=== PATIENT | female | born 1965 | race Caucasian/White ===

== ENCOUNTER 2017-09-28 19:45 | Emergency (ER) | payer OTHER, MEDICARE ==
[~2017-09-28] VITALS: Ht 160 cm; Wt 86.2 kg
[~2017-09-28 19:45] MED LIST: ACIPHEX; ACIPHEX 20 MG T20 M1 PO; ACIPHEX 20 MG T20 MG PO; ALBUTEROL INHAL17 GM IH; ALBUTEROL2.5 MG/0.1; AMARYL2 MG PO; AMBIEN 10 MG TA10 MG PO; AMITRIPTYLINE H25 M2 PO; AMOXICILLIN500 M1 PO; ANTIVERT25 MG PO; ATIVAN1 MG PO; ATROVENT15 ML NS; AZITHROMYCIN 2250 MG PO; B12INJ IM; BENADRYL25 MG PO; BUTALB-APAP-CA1 EACH PO; CARAFATE 1 GM TA1 GM PO; CHANTIX1 MG; CHERACOL COUGH120 ML PO; CIPROFLOXACIN500 M1 PO; CIPROFLOXIN HC2.5 M1 OPHTHALMIC; CLEOCIN HCL150 MG PO; COZAAR 25 MG TA25 M1 PO; CRUTCHES MISCELL; CYANOCOBAL1000 MCG/1 IJ; CYMBALTA60 MG PO; DIAZEPAM2 MG PO; DIPHENHIST50 MG PO; DOXYCYCLINE 10100 MG PO; DULOXETINE HCL30 MG PO; DULOXETINE HCL60 MG PO; EFFER-K 10 MEQ10 ME1; ENOXAPARIN30 MG/0.1; ENOXAPARIN40 MG/0.1; FENOFIBRATE160 MG PO; FENTANYL 0.50 MCG/ML IMPLANT; FENTANYL 0.50 MCG/ML IV PUSH; GABAPENTIN 100100 MG PO; HCTZ; HYCOTUSS EXPEC480 ML PO; HYDROCODON-ACE1 EAC7 PO; HYDROCODONE-AP1 EAC6 PO; IBUPROFEN 800800 MG PO; JANUVIA50 MG; JANUVIA50 MG PO; K-DUR 20 MEQ T20 MEQ PO; KEFLEX500 MG PO; LEVAQUIN 500 M500 MG PO; LEVOXYL200 MCG PO; LIPITOR 20 MG T20 M1 PO; LISINOPRIL2.5 MG PO; LISINOPRIL20 MG PO; LISINOPRIL5 MG PO; LORTAB 7.5/5001 TA3; LOVENOX30 MG/0.3 SQ; LYRICA25 MG; MAGIC MOUTHWASH PO; MAGNESIUM; MECLIZINE 25 MG25 M1 PO; MEDROLDOSEPACK PO; MIRALAX17 GM PO; NAPROSYN500 MG PO; NORFLEX100 MG PO; ONDANSETRON HCL4 M2 PO; OSENI 25-15 MG1 EACH PO; OXYCODONE; OXYCODONE HCL 55 MG PO; OXYCODONE HCL E10 MG PO; OXYCODONE HCL10 MG PO; OXYCONTIN; OXYCONTIN10 M1 PO; OXYCONTIN20 M1 PO; PAXIL10 MG PO; PEPCID20 MG PO; PERCOCET 5-3251 EACH PO; PHENERGAN 25 MG25 M1; PHENERGAN 25 MG25 M1 PO; PHENERGAN 25 MG25 MG PO; PHENERGAN12.5 M2 RECTAL; PIOGLITAZONE15 MG; PIOGLITAZONE15 MG PO; POTASSIUM20 PO; PREDNISONE 20 M20 M1 PO; PROAIR HFA8.5 GM INH; PROMETHAZINE-D120 ML PO; PROMS25 WY RECTAL; PROTONIX 20 MG20 M1 PO; PROTONIX 20 MG20 MG; PROTONIX40 M2 PO; PROVENTIL HFA6.7 G1 INH; PROVENTIL INH; PYRIDIUM200 M2 PO; RESTORIL15 MG PO; ROBAXIN 750 MG750 M1 PO; ROBAXIN500 MG PO; SIMVASTATIN40 MG PO; SKELAXIN 800 M800 M1 PO; TOBREX5 ML OP; TRIMETHOBENZAM300 M1 PO; ULTRACET TABLE1 EACH PO; VALIUM5 MG PO; VENTOLIN HFA 1818 GM; VENTOLIN HFA 1818 GM INH; VICOPROFEN 2001 EACH PO; WARFARIN; WELLBUTRIN SR150 M1 PO; WELLBUTRIN SR150 MG PO; WELLBUTRIN XL150 MG PO; XANAX 0.5 MG0.5 M1 PO; XANAX 0.5 MG0.5 MG PO; XANAX1 MG PO; XARELTO10 MG; XARELTO10 MG PO; XARELTO15 MG PO; XARELTO20 MG; ZOCOR20 MG; ZOFRAN ODT4 MG; ZOFRAN ODT4 MG PO; ZOFRAN4 MG PO
[2017-09-28 21:16] VITALS: BP 110/65
== END 2017-09-28 21:17 | disposition home or self-care (01) ==
LOC: M.ERS 19:45
DX: S86.911A Strain of unspecified muscle(s) and tendon(s) at lower leg level, right leg, initial encounter (principal); M54.9 Dorsalgia, unspecified; E03.9 Hypothyroidism, unspecified; F41.9 Anxiety disorder, unspecified; E11.9 Type 2 diabetes mellitus without complications; Z88.8 Allergy status to other drugs, medicaments and biological substances; Z96.651 Presence of right artificial knee joint; Z86.711 Personal history of pulmonary embolism; Z90.49 Acquired absence of other specified parts of digestive tract; W18.09XA Striking against other object with subsequent fall, initial encounter; Y93.89 Activity, other specified; Y92.89 Other specified places as the place of occurrence of the external cause; Y99.8 Other external cause status

== ENCOUNTER 2017-10-26 21:00 | Emergency (ER) | payer OTHER, MEDICARE ==
[~2017-10-26] VITALS: Ht 160 cm; Wt 86.2 kg
[2017-10-26] MEDS ORDERED: XIGDUO XR 10 M1 EAC1 PO (21:05)
[2017-10-26 21:14] LABS: URINE BILIRUBIN NEGATIVE (Negative); URINE BLOOD NEGATIVE (Negative); URINE CLARITY CLEAR; URINE COLOR YELLOW; URINE GLUCOSE-RANDOM 3+ (Negative); URINE KETONES NEGATIVE (Negative); URINE LEUKOCYTES-REFLEX NEGATIVE (Negative); URINE NITRITE-REFLEX NEGATIVE (Negative); URINE PROTEIN NEGATIVE (Negative); URINE UROBILINOGEN 0.2 E.U./dl (0.2-1.0)
[2017-10-26 21:28] LABS: ABSOLUTE BASOPHILS 0.1 thou/uL (0.0-0.2); ABSOLUTE EOSINOPHILS 0.2 thou/uL (0.0-0.7); ABSOLUTE LYMPHOCYTES 2.3 thou/uL (0.8-5.3); ABSOLUTE MONOCYTES 0.4 thou/uL (0.0-1.2); ABSOLUTE NEUTROPHILS 4.4 thou/uL (1.6-8.1); BASOPHILS 1.1 %; EOSINOPHILS 2.1 %; HEMATOCRIT 40.1 % (37.0-47.0); HEMOGLOBIN 13.6 gm/dL (12.0-15.0); LYMPHOCYTES 30.7 %; MCH 30.3 pg (26.0-34.0); MPV 7.1 fl. (7.2-11.1); NUCLEATED RBCS 0 /100WBC; PLATELET COUNT* 255 thou/uL (150-400); POLYS 60.1 %; WBC 7.4 thou/uL (4.0-11.0)
[2017-10-26 21:46] LABS: CALCIUM 8.9 mg/dL (8.5-10.1); CREATININE 1.4 mg/dL (0.6-1.3); POTASSIUM 3.7 mmol/L (3.5-5.1)
[2017-10-26 21:50] LABS: ALBUMIN 3.9 g/dL (3.4-5.0); TOTAL BILIRUBIN 0.2 mg/dL (<0.1-1.0); TOTAL PROTEIN 7.2 g/dL (6.4-8.2)
[2017-10-26 22:15] VITALS: BP 129/73
--- NOTE | 2017-10-27 12:24 | EKG ---
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 : 1965 Requested By: Tika Lovelace Order Number: [id number] MD: Ralph Bowles Measurements Intervals [place] Rate: 74 P: 24 ID: 174 QRS: 63 QRSD: 96 T: 66 QT: 436 QTc: 484 Interpretive Statements Sinus rhythm Borderline prolonged QT interval Compared to ECG 01/19/2017 12:29:56 Sinus tachycardia no longer present T-wave abnormality no longer present Electronically Signed On 10-27-2017 12:23:58 CDT by Ralph Bowles [email or web address] <ELECTRONICALLY SIGNED> By: Ralph Bowles MD, [facility] 10/27/17 1223 33 33 Ralph Bowles MD, [facility] /EPI
== END 2017-10-26 22:28 | disposition home or self-care (01) ==
LOC: M.ERS 21:00
PROVIDERS: Nurse Practitioner Family
DX: R10.13 Epigastric pain (principal); E11.9 Type 2 diabetes mellitus without complications; E78.00 Pure hypercholesterolemia, unspecified; M54.9 Dorsalgia, unspecified; G89.29 Other chronic pain; Z90.49 Acquired absence of other specified parts of digestive tract; E89.0 Postprocedural hypothyroidism; Z88.6 Allergy status to analgesic agent; F17.210 Nicotine dependence, cigarettes, uncomplicated

== ENCOUNTER 2017-12-30 19:31 | Emergency (ER) | payer OTHER, MEDICARE ==
[~2017-12-30] VITALS: Ht 160 cm; Wt 81.7 kg
[~2017-12-30 19:31] MED LIST changes: +XIGDUO XR 10 M1 EAC1 PO
[2017-12-30] MEDS ORDERED: LIPITOR 20 MG T20 M1 PO (19:42)
[2017-12-30] MEDS ORDERED: ONDANSETRON HCL4 M2 PO (19:42)
[2017-12-30] MEDS ORDERED: LISINOPRIL2.5 MG PO (19:42)
[2017-12-30] MEDS ORDERED: PHENERGAN 25 MG25 M1 PO (19:43)
[2017-12-30 20:33] VITALS: BP 123/88
== END 2017-12-30 20:35 | disposition home or self-care (01) ==
LOC: M.ERS 19:31
DX: G89.29 Other chronic pain (principal); M54.9 Dorsalgia, unspecified; E78.00 Pure hypercholesterolemia, unspecified; E03.9 Hypothyroidism, unspecified; F41.9 Anxiety disorder, unspecified; E11.9 Type 2 diabetes mellitus without complications; F17.210 Nicotine dependence, cigarettes, uncomplicated; Z86.711 Personal history of pulmonary embolism; Z96.651 Presence of right artificial knee joint; Z88.8 Allergy status to other drugs, medicaments and biological substances; Z88.6 Allergy status to analgesic agent; Z88.4 Allergy status to anesthetic agent

== ENCOUNTER 2018-05-27 13:32 | Emergency (ER) | payer OTHER, MEDICARE ==
[~2018-05-27] VITALS: Ht 160 cm; Wt 86.2 kg
[2018-05-27 13:58] LABS: ABSOLUTE BASOPHILS 0.1 thou/uL (0.0-0.2); ABSOLUTE EOSINOPHILS 0.1 thou/uL (0.0-0.7); ABSOLUTE MONOCYTES 0.6 thou/uL (0.0-1.2); ABSOLUTE NEUTROPHILS 6.8 thou/uL (1.6-8.1); BASOPHILS 1.4 %; EOSINOPHILS 1.3 %; HEMATOCRIT 39.4 % (37.0-47.0); HEMOGLOBIN 13.4 gm/dL (12.0-15.0); LYMPHOCYTES 20.3 %; MCH 29.2 pg (26.0-34.0); MCHC 33.8 g/dL (28.0-37.0); MCV 86.1 fL (80.0-100.0); MONOCYTES 5.8 %; MPV 7.2 fl. (7.2-11.1); NUCLEATED RBCS 0 /100WBC; PLATELET COUNT* 292 thou/uL (150-400); POLYS 71.2 %; RBC 4.58 mil/uL (4.20-5.00); RDW-CV 13.7 % (10.5-14.5); WBC 9.6 thou/uL (4.0-11.0)
[2018-05-27 14:07] LABS: ANION GAP 7 mmol/L (7-16); APTT 43.6 Seconds (25.0-31.3); BUN 11 mg/dL (7-18); CALCIUM 8.7 mg/dL (8.5-10.1); CHLORIDE 99 mmol/L (98-107); CO2 27 mmol/L (21-32); CREATININE 1.2 mg/dL (0.6-1.3); GLUCOSE 194 mg/dL (70-99); INR 1.2; POTASSIUM 3.2 mmol/L (3.5-5.1); PROTIME 12.1 Seconds (9.20-11.50); SODIUM 133 mmol/L (136-145)
[2018-05-27 14:17] LABS: ALKALINE PHOSPHATASE 107 U/L (46-116); NT-PRO BRAIN NAT PEPTIDE 68 pg/mL (<300); SGOT 50 U/L (15-37); SGPT 46 U/L (30-65); TOTAL BILIRUBIN 0.4 mg/dL (<0.1-1.0); TOTAL PROTEIN 7.6 g/dL (6.4-8.2); TROPONIN-I LEVEL <0.06 ng/mL (<0.06)
--- NOTE | 2018-05-27 14:57 | EKG ---
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1965 Requested By: Javier Cash Order Number: [id number] MD: Cayetano Mott Measurements Intervals [place] Rate: 87 P: -73 TN: 112 QRS: 46 QRSD: 88 T: 71 QT: 425 QTc: 512 Interpretive Statements Sinus or ectopic atrial rhythm Borderline short TN interval Anteroseptal infarct, age indeterminate possible Prolonged QT interval Compared to ECG 10/26/2017 21:34:45 Ectopic atrial rhythm now present Myocardial infarct finding now suggested Sinus rhythm no longer present Electronically Signed On 05-27-2018 14:57:10 CDT by Cayetano Mott [email or web address] <ELECTRONICALLY SIGNED> By: Cayetano Mott MD, FACC 05/27/18 1457 1353 1353 Cayetano Mott MD, FAC /EPI
[2018-05-27 15:13] VITALS: BP 110/80
== END 2018-05-27 15:13 | disposition home or self-care (01) ==
LOC: M.ERS 13:32
PROVIDERS: Family Medicine
DX: R53.1 Weakness (principal); R11.0 Nausea; M54.5 Low back pain; G89.29 Other chronic pain; E03.9 Hypothyroidism, unspecified; E11.9 Type 2 diabetes mellitus without complications; Z90.49 Acquired absence of other specified parts of digestive tract; F17.210 Nicotine dependence, cigarettes, uncomplicated; Z88.5 Allergy status to narcotic agent; Z88.8 Allergy status to other drugs, medicaments and biological substances

== ENCOUNTER 2018-09-27 00:12 | Emergency (ER) | payer OTHER, MEDICARE ==
[~2018-09-27] VITALS: Ht 160 cm; Wt 86.2 kg
[~2018-09-27 00:12] MED LIST changes: +AUGMENTIN 875-1 EACH PO; +CREON DR 36,001 EACH PO; +DIFLUCAN100 MG PO; +GLIPIZIDE 10 MG10 MG PO; +IPRAT-ALBUT 0.5-3 ML INH; +PREDNISONE 10 M10 MG PO; +ROXICODONE15 M1 PO; +TAMIFLU75 MG PO
[2018-09-27 00:39] VITALS: BP 146/102
== END 2018-09-27 00:43 | disposition left against medical advice (07) ==
LOC: M.ERS 00:12
DX: G89.29 Other chronic pain (principal); R10.10 Upper abdominal pain, unspecified; R11.2 Nausea with vomiting, unspecified; M54.9 Dorsalgia, unspecified; E78.00 Pure hypercholesterolemia, unspecified; F41.9 Anxiety disorder, unspecified; E11.9 Type 2 diabetes mellitus without complications; Z90.49 Acquired absence of other specified parts of digestive tract; E89.0 Postprocedural hypothyroidism; Z96.651 Presence of right artificial knee joint; F17.210 Nicotine dependence, cigarettes, uncomplicated; Z88.5 Allergy status to narcotic agent; Z88.8 Allergy status to other drugs, medicaments and biological substances

== ENCOUNTER 2019-04-19 22:37 | Emergency (ER) | payer OTHER, MEDICARE ==
[~2019-04-19] VITALS: Ht 160 cm; Wt 88.5 kg
[2019-04-19 23:55] VITALS: BP 114/84
== END 2019-04-19 23:57 | disposition home or self-care (01) ==
LOC: M.ERS 22:37
DX: L76.82 Other postprocedural complications of skin and subcutaneous tissue (principal); E03.9 Hypothyroidism, unspecified; F41.9 Anxiety disorder, unspecified; E11.9 Type 2 diabetes mellitus without complications; E78.00 Pure hypercholesterolemia, unspecified; M41.9 Scoliosis, unspecified; G89.29 Other chronic pain; M54.5 Low back pain; F17.210 Nicotine dependence, cigarettes, uncomplicated; Z90.89 Acquired absence of other organs; Z90.49 Acquired absence of other specified parts of digestive tract; Z86.711 Personal history of pulmonary embolism; Z98.890 Other specified postprocedural states; Z96.651 Presence of right artificial knee joint; Z88.6 Allergy status to analgesic agent; Z88.1 Allergy status to other antibiotic agents; Z88.2 Allergy status to sulfonamides; Z88.8 Allergy status to other drugs, medicaments and biological substances

== ENCOUNTER 2020-05-10 12:38 | Emergency (ER) | payer OTHER, MEDICARE ==
[~2020-05-10] VITALS: Ht 160 cm; Wt 86.2 kg
[2020-05-10 13:16] LABS: ABSOLUTE BASOPHILS 0.2 thou/uL (0.0-0.2); ABSOLUTE EOSINOPHILS 0.2 thou/uL (0.0-0.7); ABSOLUTE LYMPHOCYTES 2.8 thou/uL (0.8-5.3); ABSOLUTE MONOCYTES 0.8 thou/uL (0.0-1.2); ABSOLUTE NEUTROPHILS 10.8 thou/uL (1.6-8.1); BASOPHILS 1.4 %; EOSINOPHILS 1.2 %; HEMATOCRIT 43.7 % (37.0-47.0); HEMOGLOBIN 15.2 gm/dL (12.0-15.0); LYMPHOCYTES 19.2 %; MCHC 34.8 g/dL (28.0-37.0); MCV 89.3 fL (80.0-100.0); MONOCYTES 5.5 %; MPV 7.3 fl. (7.2-11.1); NUCLEATED RBCS 0 /100WBC; PLATELET COUNT* 311 thou/uL (150-400); POLYS 72.7 %; RDW-CV 13.4 % (10.5-14.5); WBC 14.8 thou/uL (4.0-11.0)
[2020-05-10 13:24] LABS: CALCIUM 9.1 mg/dL (8.5-10.1); CREATININE 1.3 mg/dL (0.6-1.3); POTASSIUM 3.2 mmol/L (3.5-5.1)
[2020-05-10 13:28] LABS: ALBUMIN 4.2 g/dL (3.4-5.0); TOTAL BILIRUBIN 0.3 mg/dL (<0.1-1.0); TOTAL PROTEIN 7.7 g/dL (6.4-8.2)
[2020-05-10] MEDS ORDERED: CARAFATE1 GM PO (15:44)
[2020-05-10 15:58] VITALS: BP 115/94
--- NOTE | 2020-05-10 17:14 | EKG ---
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: YESSENIA : 1965 Requested By: Mc Mari Order Number: [id number] MD: Cayetano Mott Measurements Intervals [place] Rate: 96 P: 60 [place]: 172 QRS: 55 QRSD: 93 T: 62 QT: 370 QTc: 468 Interpretive Statements Sinus rhythm Compared to ECG 05/27/2018 13:53:51 Ectopic atrial rhythm no longer present Myocardial infarct finding no longer present Prolonged QT interval no longer present Electronically Signed On 05-10-2020 17:14:47 CDT by Cayetano Mott [email or web address] <ELECTRONICALLY SIGNED> By: Cayetano Mott MD, [facility] 05/10/20 1714 1320 1320 Cayetano Mott MD, [facility] /EPI
== END 2020-05-10 15:59 | disposition home or self-care (01) ==
LOC: M.ERS 12:38
PROVIDERS: Emergency Medicine Emergency Medical Services
DX: R10.10 Upper abdominal pain, unspecified (principal); R05 Cough; F17.210 Nicotine dependence, cigarettes, uncomplicated; Z90.49 Acquired absence of other specified parts of digestive tract; E78.00 Pure hypercholesterolemia, unspecified; E03.9 Hypothyroidism, unspecified; Z79.899 Other long term (current) drug therapy; Z88.8 Allergy status to other drugs, medicaments and biological substances; Z88.6 Allergy status to analgesic agent

== ENCOUNTER 2020-08-18 22:19 | Emergency (ER) | payer OTHER, MEDICARE ==
[~2020-08-18] VITALS: Ht 160 cm; Wt 86.2 kg
[~2020-08-18 22:19] MED LIST changes: +CARAFATE1 GM PO
[2020-08-18] MEDS ORDERED: OZEMPIC0.25 MG/0. SUBQ (22:32)
[2020-08-18 23:25] VITALS: BP 123/62
--- NOTE | 2020-08-21 10:02 | EKG ---
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: : 1965 Requested By: Oralia Herron Order Number: [id number] MD: Cayetano Mott Measurements Intervals [place] Rate: 98 P: 11 [place]: 152 QRS: 43 QRSD: 86 T: 69 QT: 364 QTc: 465 Interpretive Statements Sinus rhythm Borderline T wave abnormalities Compared to ECG 05/10/2020 13:20:31 T-wave abnormality now present Electronically Signed On 08-21-2020 10:02:16 [employer] by Cayetano Mott [email or web address] <ELECTRONICALLY SIGNED> By: Cayetano Mott MD, FACC 08/21/20 1002 2225 2225 Cayetano Mtot MD, [facility] /EPI
== END 2020-08-18 23:25 | disposition home or self-care (01) ==
LOC: M.ERS 22:19
DX: R09.89 Other specified symptoms and signs involving the circulatory and respiratory systems (principal); Z20.828 Contact with and (suspected) exposure to other viral communicable diseases; E78.00 Pure hypercholesterolemia, unspecified; E03.9 Hypothyroidism, unspecified; E11.9 Type 2 diabetes mellitus without complications; M41.9 Scoliosis, unspecified; F17.210 Nicotine dependence, cigarettes, uncomplicated; Z86.711 Personal history of pulmonary embolism; Z88.6 Allergy status to analgesic agent; Z88.8 Allergy status to other drugs, medicaments and biological substances; Z90.49 Acquired absence of other specified parts of digestive tract

== ENCOUNTER 2020-09-14 04:04 | Emergency (ER) | payer OTHER, MEDICARE ==
[~2020-09-14] VITALS: Ht 157.5 cm; Wt 86.2 kg
[~2020-09-14 04:04] MED LIST changes: +OZEMPIC0.25 MG/0. SUBQ
[2020-09-14 06:08] VITALS: BP 154/74
== END 2020-09-14 06:09 | disposition home or self-care (01) ==
LOC: M.ERS 04:04
DX: M54.41 Lumbago with sciatica, right side (principal); E11.9 Type 2 diabetes mellitus without complications; F17.210 Nicotine dependence, cigarettes, uncomplicated; Z88.6 Allergy status to analgesic agent; Z88.8 Allergy status to other drugs, medicaments and biological substances; Z79.899 Other long term (current) drug therapy; Z90.49 Acquired absence of other specified parts of digestive tract; Z98.890 Other specified postprocedural states; Z96.651 Presence of right artificial knee joint

== ENCOUNTER 2020-09-16 16:57 | Emergency (ER) | payer OTHER, MEDICARE ==
[~2020-09-16] VITALS: Ht 160 cm; Wt 86.2 kg
[2020-09-16 18:50] VITALS: BP 139/60
== END 2020-09-16 18:52 | disposition home or self-care (01) ==
LOC: M.ERS 16:57
DX: M54.5 Low back pain (principal); G89.29 Other chronic pain; M25.551 Pain in right hip; E11.9 Type 2 diabetes mellitus without complications; M41.9 Scoliosis, unspecified; E03.9 Hypothyroidism, unspecified; E78.00 Pure hypercholesterolemia, unspecified; F17.210 Nicotine dependence, cigarettes, uncomplicated; Z88.8 Allergy status to other drugs, medicaments and biological substances; Z88.6 Allergy status to analgesic agent; Z90.49 Acquired absence of other specified parts of digestive tract; Z96.651 Presence of right artificial knee joint; Z86.711 Personal history of pulmonary embolism

== ENCOUNTER 2020-09-17 13:52 | Emergency (ER) | payer OTHER, MEDICARE ==
[~2020-09-17] VITALS: Ht 160 cm; Wt 86.2 kg
[2020-09-17 13:59] VITALS: BP 170/98
== END 2020-09-17 14:17 | disposition home or self-care (01) ==
LOC: M.ERS 13:52
DX: G89.29 Other chronic pain (principal); M54.5 Low back pain; E78.00 Pure hypercholesterolemia, unspecified; K21.9 Gastro-esophageal reflux disease without esophagitis; E03.9 Hypothyroidism, unspecified; M41.9 Scoliosis, unspecified; E11.9 Type 2 diabetes mellitus without complications; F17.210 Nicotine dependence, cigarettes, uncomplicated; Z88.6 Allergy status to analgesic agent; Z88.8 Allergy status to other drugs, medicaments and biological substances; Z86.711 Personal history of pulmonary embolism; Z90.49 Acquired absence of other specified parts of digestive tract; Z96.651 Presence of right artificial knee joint

== ENCOUNTER 2020-10-22 23:15 | Emergency (ER) | payer OTHER, MEDICARE ==
[~2020-10-22] VITALS: Ht 160 cm; Wt 79.8 kg
[2020-10-23 00:58] VITALS: BP 132/76
== END 2020-10-23 00:58 | disposition home or self-care (01) ==
LOC: M.ERS 23:15
DX: S01.01XA Laceration without foreign body of scalp, initial encounter (principal); M53.3 Sacrococcygeal disorders, not elsewhere classified; E78.00 Pure hypercholesterolemia, unspecified; E03.9 Hypothyroidism, unspecified; K21.9 Gastro-esophageal reflux disease without esophagitis; E11.9 Type 2 diabetes mellitus without complications; M41.9 Scoliosis, unspecified; G89.29 Other chronic pain; F17.210 Nicotine dependence, cigarettes, uncomplicated; Z88.6 Allergy status to analgesic agent; Z86.711 Personal history of pulmonary embolism; Z88.8 Allergy status to other drugs, medicaments and biological substances; Z90.49 Acquired absence of other specified parts of digestive tract; Z96.651 Presence of right artificial knee joint; W18.39XA Other fall on same level, initial encounter; Y93.89 Activity, other specified; Y92.89 Other specified places as the place of occurrence of the external cause; Y99.8 Other external cause status

== ENCOUNTER 2020-11-12 06:20 | Emergency (ER) | payer OTHER, MEDICARE ==
[~2020-11-12] VITALS: Ht 160 cm; Wt 80.3 kg
[2020-11-12 09:20] VITALS: BP 124/72
== END 2020-11-12 09:22 | disposition home or self-care (01) ==
LOC: M.ERS 06:20
DX: S82.491A Other fracture of shaft of right fibula, initial encounter for closed fracture (principal); G89.29 Other chronic pain; E78.00 Pure hypercholesterolemia, unspecified; E03.9 Hypothyroidism, unspecified; E11.9 Type 2 diabetes mellitus without complications; F17.210 Nicotine dependence, cigarettes, uncomplicated; Z86.711 Personal history of pulmonary embolism; Z88.6 Allergy status to analgesic agent; Z88.8 Allergy status to other drugs, medicaments and biological substances; Z90.49 Acquired absence of other specified parts of digestive tract; W19.XXXA Unspecified fall, initial encounter; Y93.89 Activity, other specified; Y92.89 Other specified places as the place of occurrence of the external cause; Y99.8 Other external cause status

== ENCOUNTER 2020-11-12 14:30 | Emergency (ER) | payer OTHER, MEDICARE ==
[~2020-11-12] VITALS: Ht 160 cm; Wt 79.4 kg
[2020-11-12 14:37] VITALS: BP 127/78
== END 2020-11-12 14:45 | disposition home or self-care (01) ==
LOC: M.ERS 14:30
DX: M79.604 Pain in right leg (principal); M25.561 Pain in right knee; M25.571 Pain in right ankle and joints of right foot; E78.00 Pure hypercholesterolemia, unspecified; K21.9 Gastro-esophageal reflux disease without esophagitis; E11.9 Type 2 diabetes mellitus without complications; E03.9 Hypothyroidism, unspecified; F17.210 Nicotine dependence, cigarettes, uncomplicated; Z88.6 Allergy status to analgesic agent; Z88.8 Allergy status to other drugs, medicaments and biological substances; Z90.49 Acquired absence of other specified parts of digestive tract; Z86.711 Personal history of pulmonary embolism

== ENCOUNTER 2021-08-09 04:49 | Emergency (ER) | payer OTHER, MEDICARE ==
[~2021-08-09] VITALS: Ht 160 cm; Wt 86.2 kg
[2021-08-09 05:35] LABS: HEMOGLOBIN 15.3 gm/dL (12.0-15.0); MCH 28.4 pg (26.0-34.0); MCHC 33.9 g/dL (28.0-37.0); MCV 83.7 fL (80.0-100.0); MPV 7.3 fl. (7.2-11.1); NUCLEATED RBCS 0 /100WBC; PLATELET COUNT* 287 thou/uL (150-400); RBC 5.38 mil/uL (4.20-5.00); WBC 19.9 thou/uL (4.0-11.0)
[2021-08-09 05:45] LABS: CREATININE 1.2 mg/dL (0.6-1.3); POTASSIUM 3.4 mmol/L (3.5-5.1)
[2021-08-09 05:49] LABS: MAGNESIUM 1.2 mg/dL (1.8-2.4); TOTAL BILIRUBIN 0.4 mg/dL (<0.1-1.0); TOTAL PROTEIN 7.7 g/dL (6.4-8.2)
[2021-08-09 07:02] LABS: ABSOLUTE LYMPHOCYTES 1.4 thou/uL (0.8-5.3); ABSOLUTE MONOCYTES 0.4 thou/uL (0.0-1.2); ABSOLUTE NEUTROPHILS 18.1 thou/uL (1.6-8.1)
[2021-08-09 07:03] LABS: PLATELET ESTIMATE ADEQUATE
[2021-08-09] MEDS ORDERED: METRONIDAZOLE500 M4 PO (07:36)
[2021-08-09] MEDS ORDERED: ZOFRAN ODT4 MG PO (07:36)
[2021-08-09 08:14] VITALS: BP 115/77
== END 2021-08-09 08:14 | disposition home or self-care (01) ==
LOC: M.ERS 04:49
PROVIDERS: Emergency Medicine
DX: K56.7 Ileus, unspecified (principal); R11.2 Nausea with vomiting, unspecified; R19.7 Diarrhea, unspecified; E78.00 Pure hypercholesterolemia, unspecified; F17.210 Nicotine dependence, cigarettes, uncomplicated; K21.9 Gastro-esophageal reflux disease without esophagitis; E03.9 Hypothyroidism, unspecified; F41.9 Anxiety disorder, unspecified; E11.9 Type 2 diabetes mellitus without complications; Z79.899 Other long term (current) drug therapy; Z98.890 Other specified postprocedural states; Z90.49 Acquired absence of other specified parts of digestive tract; Z88.8 Allergy status to other drugs, medicaments and biological substances

== ENCOUNTER 2021-09-09 22:06 | Emergency (ER) | payer OTHER, MEDICARE ==
[~2021-09-09] VITALS: Ht 160 cm; Wt 90.7 kg
[~2021-09-09 22:06] MED LIST changes: +METRONIDAZOLE500 M4 PO
[2021-09-10 01:01] LABS: ABSOLUTE EOSINOPHILS 0.1 thou/uL (0.0-0.7); ABSOLUTE LYMPHOCYTES 1.4 thou/uL (0.8-5.3); ABSOLUTE MONOCYTES 0.5 thou/uL (0.0-1.2); ABSOLUTE NEUTROPHILS 5.7 thou/uL (1.6-8.1); BASOPHILS 0.4 %; EOSINOPHILS 1.5 %; HEMATOCRIT 38.1 % (37.0-47.0); HEMOGLOBIN 13.1 gm/dL (12.0-15.0); LYMPHOCYTES 18.1 %; MCH 29.1 pg (26.0-34.0); MCHC 34.5 g/dL (28.0-37.0); MCV 84.5 fL (80.0-100.0); MONOCYTES 6.6 %; MPV 7.3 fl. (7.2-11.1); NUCLEATED RBCS 0 /100WBC; PLATELET COUNT* 231 thou/uL (150-400); POLYS 73.4 %; RBC 4.51 mil/uL (4.20-5.00); RDW-CV 13.8 % (10.5-14.5); WBC 7.8 thou/uL (4.0-11.0)
[2021-09-10 01:08] LABS: CALCIUM 7.8 mg/dL (8.5-10.1); POTASSIUM 3.1 mmol/L (3.5-5.1)
[2021-09-10 01:12] LABS: ALBUMIN 3.5 g/dL (3.4-5.0); TOTAL BILIRUBIN 0.5 mg/dL (<0.1-1.0); TOTAL PROTEIN 6.5 g/dL (6.4-8.2)
[2021-09-10 03:04] LABS: URINE BILIRUBIN NEGATIVE (Negative); URINE BLOOD NEGATIVE (Negative); URINE CLARITY CLEAR; URINE COLOR YELLOW; URINE GLUCOSE-RANDOM NEGATIVE (Negative); URINE KETONES NEGATIVE (Negative); URINE LEUKOCYTES-REFLEX NEGATIVE (Negative); URINE NITRITE-REFLEX NEGATIVE (Negative); URINE PROTEIN NEGATIVE (Negative); URINE SPECIFIC GRAVITY <= 1.005 (1.005-1.030); URINE UROBILINOGEN 0.2 E.U./dl (0.2-1.0)
[2021-09-10 03:23] VITALS: BP 146/74
== END 2021-09-10 03:24 | disposition home or self-care (01) ==
LOC: M.ERS 22:06
PROVIDERS: Personal Emergency Response Attendant
DX: K52.9 Noninfective gastroenteritis and colitis, unspecified (principal); E11.9 Type 2 diabetes mellitus without complications; E87.6 Hypokalemia; E78.00 Pure hypercholesterolemia, unspecified; E03.9 Hypothyroidism, unspecified; F41.9 Anxiety disorder, unspecified; F17.210 Nicotine dependence, cigarettes, uncomplicated; Z90.89 Acquired absence of other organs; Z96.651 Presence of right artificial knee joint; Z90.49 Acquired absence of other specified parts of digestive tract; Z98.890 Other specified postprocedural states; Z86.711 Personal history of pulmonary embolism; Z79.899 Other long term (current) drug therapy; Z88.8 Allergy status to other drugs, medicaments and biological substances